=== PATIENT | male | born 1990 | race Hispanic/Latino ===

== ENCOUNTER 2018-03-25 14:55 | Observation (INO) | payer SELFPAY ==
[~2018-03-25] VITALS: Ht 185.4 cm; Wt 119.8 kg
[~2018-03-25 14:55] MED LIST: CEPHALEXIN500 MG OR; MEDDOSEPAK PO
[2018-03-25 16:47] LABS: HEMATOCRIT 41.4 % (39.0-50.0); HEMOGLOBIN 14.2 g/dl (14.0-18.0); IMMATURE GRANULOCYTES 0.2 % (0.0-5.0); MEAN CELL VOLUME 89.2 fL CALC (80.0-100.0); MEAN CORPUSCULAR HGB 30.6 pG CALC (26.0-32.0); MEAN CORPUSCULAR HGB CONC 34.3 g/L CALC (32.0-36.0); NEUT# 8.24 thou/uL (1.82-7.42); RED BLOOD COUNT 4.64 mill/uL (4.70-6.10); RED CELL DISTRI WIDTH 12.2 % (11.5-15.5)
[2018-03-25 16:50] LABS: URINE BILIRUBIN - DIPSTICK NEGATIVE (NEGATIVE); URINE BLOOD DIPSTICK SMALL (NEGATIVE); URINE COLOR YELLOW; URINE GLUCOSE - DIPSTICK NEGATIVE (NEGATIVE); URINE KETONE NEGATIVE (NEGATIVE); URINE LEUK ESTERASE NEGATIVE (NEGATIVE); URINE NITRITE - DIPSTICK NEGATIVE (Negative); URINE PROTEIN - DIPSTICK NEGATIVE (NEG-TRACE); URINE UROBILINOGEN - DIPSTICK 0.2 E.U./dL (0.2)
[2018-03-25 16:59] LABS: URINE CLARITY CLEAR
[2018-03-25 17:00] LABS: ALBUMIN 4.1 g/dL (3.2-5.0); ALKALINE PHOSPHATASE 69 u/l (38-126); ANION GAP 15 (6-22 (CALC)); BILIRUBIN, TOTAL 0.4 mg/dL (0.0-1.4); BUN 9 mg/dL (9-20); BUN/CREATININE RATIO 11 (12-20 (CALC)); CARBON DIOXIDE 27 mmol/l (22-30); CHLORIDE 104 mmol/l (95-108); CREATININE 0.8 mg/dL (0.7-1.3); GFR > 60 ML/MIN (>=60 (CALC)); GFR FOR AFR.AMER. > 60 ML/MIN (>=60 (CALC)); LIPASE 204 u/l (23-300); POTASSIUM 4.1 mmol/l (3.5-5.1); SGOT/AST 21 u/l (17-59); SODIUM 141 mmol/l (137-146); TOTAL PROTEIN 7.2 g/dL (6.3-8.2); URINE RBC 0-2 RBC/hpf (0-5); URINE WBC 0-2 WBC/hpf (0-5)
[2018-03-25 19:55] VITALS: BP 146/85
[2018-03-26 04:00] VITALS: BP 120/60
[2018-03-26 08:08] VITALS: BP 125/66
[2018-03-26 15:45] VITALS: BP 123/76
[2018-03-26 20:00] VITALS: BP 130/79
[2018-03-27 04:25] VITALS: BP 115/63
[2018-03-27 05:30] LABS: HEMATOCRIT 41.4 % (39.0-50.0); HEMOGLOBIN 14.3 g/dl (14.0-18.0); IMMATURE GRANULOCYTES 0.4 % (0.0-5.0); MEAN CORPUSCULAR HGB 30.8 pG CALC (26.0-32.0); MEAN CORPUSCULAR HGB CONC 34.5 g/L CALC (32.0-36.0); PLATELET COUNT 367 thou/uL (130-400); RED BLOOD COUNT 4.65 mill/uL (4.70-6.10); RED CELL DISTRI WIDTH 11.9 % (11.5-15.5)
[2018-03-27 05:48] LABS: ALKALINE PHOSPHATASE 77 u/l (38-126); ANION GAP 18 (6-22 (CALC)); BILIRUBIN, TOTAL 0.7 mg/dL (0.0-1.4); BUN 11 mg/dL (9-20); BUN/CREATININE RATIO 15 (12-20 (CALC)); CARBON DIOXIDE 25 mmol/l (22-30); CHLORIDE 104 mmol/l (95-108); CREATININE 0.8 mg/dL (0.7-1.3); GFR > 60 ML/MIN (>=60 (CALC)); GFR FOR AFR.AMER. > 60 ML/MIN (>=60 (CALC)); MAGNESIUM 2.1 mg/dL (1.6-2.3); POTASSIUM 4.4 mmol/l (3.5-5.1); SGOT/AST 18 u/l (17-59); SODIUM 142 mmol/l (137-146); TOTAL PROTEIN 7.1 g/dL (6.3-8.2)
[2018-03-27 06:20] LABS: MANUAL DIFFERENTIAL YES
[2018-03-27 06:30] LABS: BAND 2 % (0-8)
[2018-03-27 06:31] LABS: ANISOCYTOSIS FEW; MICROCYTOSIS FEW; TEAR DROP CELLS FEW
[2018-03-27 06:32] LABS: PLATELET ESTIMATE NORMAL
[2018-03-27 07:32] VITALS: BP 121/74
[2018-03-27 16:00] VITALS: BP 107/62
[2018-03-27 19:30] VITALS: BP 121/68
[2018-03-28 05:10] VITALS: BP 127/73
[2018-03-28 05:32] LABS: HEMATOCRIT 44.1 % (39.0-50.0); HEMOGLOBIN 15.2 g/dl (14.0-18.0); IMMATURE GRANULOCYTES 0.4 % (0.0-5.0); MEAN CELL VOLUME 87.3 fL CALC (80.0-100.0); MEAN CORPUSCULAR HGB 30.1 pG CALC (26.0-32.0); MEAN CORPUSCULAR HGB CONC 34.5 g/L CALC (32.0-36.0); NEUT# 7.26 thou/uL (1.82-7.42); RED BLOOD COUNT 5.05 mill/uL (4.70-6.10); RED CELL DISTRI WIDTH 11.9 % (11.5-15.5)
[2018-03-28 05:47] LABS: ALBUMIN 4.3 g/dL (3.2-5.0); ALKALINE PHOSPHATASE 72 u/l (38-126); ANION GAP 18 (6-22 (CALC)); BILIRUBIN, TOTAL 0.7 mg/dL (0.0-1.4); BUN 12 mg/dL (9-20); BUN/CREATININE RATIO 16 (12-20 (CALC)); CARBON DIOXIDE 25 mmol/l (22-30); CHLORIDE 103 mmol/l (95-108); CREATININE 0.8 mg/dL (0.7-1.3); GFR > 60 ML/MIN (>=60 (CALC)); GFR FOR AFR.AMER. > 60 ML/MIN (>=60 (CALC)); MAGNESIUM 2.1 mg/dL (1.6-2.3); POTASSIUM 4.6 mmol/l (3.5-5.1); SGOT/AST 23 u/l (17-59); SODIUM 142 mmol/l (137-146); TOTAL PROTEIN 7.8 g/dL (6.3-8.2)
[2018-03-28 09:08] VITALS: BP 129/77
[2018-03-28 15:20] VITALS: BP 106/67
[2018-03-28] MEDS ORDERED: CIPROFLOXACN500 MG PO (15:36)
[2018-03-28] MEDS ORDERED: METRONIDAZOL500 MG PO (15:36)
== END 2018-03-28 16:40 | disposition home or self-care (01) | DRG 392 ==
LOC: ED 14:55 → ED-I 18:20 → ED 19:07 → MS2 19:08
PROVIDERS: Family Medicine; Internal Medicine Nephrology; ADMIT Internal Medicine; ATTEND Internal Medicine
DX: K57.20 Diverticulitis of large intestine with perforation and abscess without bleeding (principal); E86.0 Dehydration
CPT/HCPCS: G0378; J1650; Q9967

== ENCOUNTER 2019-06-04 | Emergency (ER) | payer SELFPAY ==
[~2019-06-04] MED LIST changes: +CIPROFLOXACN500 MG PO; +METRONIDAZOL500 MG PO
[2019-06-04 20:44] LABS: HEMATOCRIT 40.4 % (39.0-50.0); HEMOGLOBIN 14.4 g/dl (14.0-18.0); IMMATURE GRANULOCYTES 0.3 % (0.0-5.0); MEAN CELL VOLUME 86.5 fL CALC (80.0-100.0); MEAN CORPUSCULAR HGB 30.8 pG CALC (26.0-32.0); MEAN CORPUSCULAR HGB CONC 35.6 g/L CALC (32.0-36.0); NEUT# 13.15 thou/uL (1.82-7.42); RED BLOOD COUNT 4.67 mill/uL (4.70-6.10)
[2019-06-04 21:06] LABS: ALBUMIN 4.3 g/dL (3.2-5.0); ALKALINE PHOSPHATASE 64 u/l (38-126); AMYLASE 41 u/l (30-110); ANION GAP 17 (6-22 (CALC)); BILIRUBIN, TOTAL 1.4 mg/dL (0.0-1.4); BUN 12 mg/dL (9-20); BUN/CREATININE RATIO 14 (12-20 (CALC)); CARBON DIOXIDE 21 mmol/l (22-30); CHLORIDE 101 mmol/l (95-108); CREATININE 0.8 mg/dL (0.7-1.3); GFR > 60 ML/MIN (>=60 (CALC)); GFR FOR AFR.AMER. > 60 ML/MIN (>=60 (CALC)); POTASSIUM 3.5 mmol/l (3.5-5.1); SGOT/AST 21 u/l (17-59); SODIUM 135 mmol/l (137-146); TOTAL PROTEIN 7.3 g/dL (6.3-8.2)
[2019-06-04 22:25] LABS: URINE BILIRUBIN - DIPSTICK NEGATIVE (NEGATIVE); URINE BLOOD DIPSTICK TRACE-INTACT (NEGATIVE); URINE COLOR YELLOW; URINE GLUCOSE - DIPSTICK NEGATIVE (NEGATIVE); URINE KETONE TRACE mg/dL (NEGATIVE); URINE LEUK ESTERASE NEGATIVE (NEGATIVE); URINE NITRITE - DIPSTICK NEGATIVE (Negative); URINE PH 6.5 (4.5-8.0); URINE PROTEIN - DIPSTICK NEGATIVE (NEG-TRACE); URINE SPECIFIC GRAVITY <=1.005; URINE UROBILINOGEN - DIPSTICK 0.2 E.U./dL (0.2)
[2019-06-04] MEDS ORDERED: METRONIDAZOL500 MG PO (22:37)
[2019-06-04] MEDS ORDERED: LORTAB 1010 MG PO (22:37)
[2019-06-04] MEDS ORDERED: CIPROFLOXACN500 MG PO (22:37)
== END 2019-06-05 00:13 | disposition home or self-care (01) | DRG 387 ==
PROVIDERS: Emergency Medicine
DX: K50.10 Crohn's disease of large intestine without complications (principal)
CPT/HCPCS: J1956; Q9967

== ENCOUNTER 2024-01-09 17:23 | Emergency (ER) | payer SELFPAY ==
[~2024-01-09] VITALS: Ht 185.4 cm; Wt 81.6 kg
[~2024-01-09 17:23] MED LIST changes: +LORTAB 1010 MG PO
[2024-01-09 17:35] VITALS: BP 138/90
[2024-01-09] MEDS ORDERED: predniSONE 20 MG/TAB PO ONE (17:40)
[2024-01-09] MEDS ORDERED: IPRATROPIUM-Albuterol 0.5MG-2.5MG/3 ML NEB ONE (17:40)
[2024-01-09 18:00] VITALS: BP 128/84
[2024-01-09 18:15] VITALS: BP 139/92
[2024-01-09 18:30] VITALS: BP 135/79
[2024-01-09] MEDS ORDERED: VENTOLIN HFA108 MCG PO (18:34)
[2024-01-09] MEDS ORDERED: ZPAK PO (18:34)
[2024-01-09] MEDS ORDERED: PREDNISONE50 MG PO (18:34)
[2024-01-09 18:40] VITALS: BP 135/79
== END 2024-01-09 18:40 | disposition home or self-care (01) | DRG 153 ==
LOC: ED 17:23
DX: J06.9 Acute upper respiratory infection, unspecified (principal); Z20.822 Contact with and (suspected) exposure to COVID-19

== ENCOUNTER 2024-02-11 11:45 | Emergency (ER) | payer SELFPAY ==
[~2024-02-11] VITALS: Ht 185.4 cm; Wt 83.9 kg
[~2024-02-11 11:45] MED LIST changes: +PREDNISONE50 MG PO; +VENTOLIN HFA108 MCG PO; +ZPAK PO
[2024-02-11 12:03] VITALS: BP 145/98
[2024-02-11 12:15] VITALS: BP 141/98
[2024-02-11 12:30] VITALS: BP 142/94
[2024-02-11 12:45] VITALS: BP 126/91
[2024-02-11 13:00] VITALS: BP 131/92
[2024-02-11] MEDS ORDERED: DOXYCYCLINE HYCLATE 100 MG/CAP PO ONE (13:10)
[2024-02-11] MEDS ORDERED: VIBRAMYCIN100 M2 PO (13:15)
[2024-02-11] MEDS ORDERED: MUPIROCIN2 % EX (13:16)
[2024-02-11 13:18] VITALS: BP 131/92
== END 2024-02-11 13:19 | disposition home or self-care (01) | DRG 603 ==
LOC: ED 11:45
DX: L03.115 Cellulitis of right lower limb (principal)